=== PATIENT | male | born 1990 | race Caucasian/White ===

== ENCOUNTER → 2017-07-23 14:33 | Outpatient (CLI) | payer OTHER, SELFPAY ==
[2017-07-23 15:25] LABS: Amphetamine Urine VISTA NEGATIVE (<1000 ng/mL); Barbiturate Urine VISTA NEGATIVE (< 200 ng/mL); Benzodiazepine Urine VISTA NEGATIVE (< 200 ng/mL); Cocaine Urine VISTA NEGATIVE (< 300 ng/mL); Ecstacy Urine VISTA NEGATIVE (< 500 ng/mL); Methadone Urine VISTA NEGATIVE (< 300 ng/mL); PCP Urine VISTA NEGATIVE (< 25 ng/mL); THC Urine VISTA NEGATIVE (< 50 ng/mL); Vista UDS pH Range 5
== END ==
PROVIDERS: Visit Provider Anesthesiology Pain Medicine
DX: F11.20 Opioid dependence, uncomplicated (principal)
CPT/HCPCS: 80307

== ENCOUNTER → 2018-02-11 17:55 | Outpatient (CLI) | payer OTHER, SELFPAY | PROVIDERS: Visit Provider Anesthesiology Pain Medicine | DX: M54.2 Cervicalgia (principal); M79.603 Pain in arm, unspecified | CPT/HCPCS: 72040 ==

== ENCOUNTER → 2020-07-19 16:25 | Outpatient (CLI) | payer OTHER, SELFPAY ==
[2020-07-19 17:55] LABS: Amphetamine Urine VISTA NEGATIVE (<1000 ng/mL); Barbiturate Urine VISTA NEGATIVE (< 200 ng/mL); Benzodiazepine Urine VISTA NEGATIVE (< 200 ng/mL); Cocaine Urine VISTA NEGATIVE (< 300 ng/mL); Ecstacy Urine VISTA NEGATIVE (< 500 ng/mL); Methadone Urine VISTA NEGATIVE (< 300 ng/mL); PCP Urine VISTA NEGATIVE (< 25 ng/mL); THC Urine VISTA NEGATIVE (< 50 ng/mL); Vista UDS pH Range 5
== END ==
PROVIDERS: Referring Provider Anesthesiology Pain Medicine; Visit Provider Anesthesiology Pain Medicine
DX: F11.20 Opioid dependence, uncomplicated (principal)
CPT/HCPCS: 80307

== ENCOUNTER 2020-10-10 14:01 | Outpatient (RCR) | payer OTHER, SELFPAY ==
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
--- NOTE | 2020-10-15 16:02 | HP.OTFCE.D ---
FCE D/C Summary - Discharge [facility] was seen for a one time visit for an FCE on 10/10/20 and is discharged.
== END 2020-10-10 19:00 | disposition home or self-care (01) ==
LOC: OT 14:01
PROVIDERS: PCP Student in an Organized Health Care Education/Training Program; Referring Provider Anesthesiology Pain Medicine; Visit Provider Anesthesiology Pain Medicine
DX: M51.27 Other intervertebral disc displacement, lumbosacral region (principal); M51.26 Other intervertebral disc displacement, lumbar region; M51.36 Other intervertebral disc degeneration, lumbar region; M51.37 Other intervertebral disc degeneration, lumbosacral region; M54.17 Radiculopathy, lumbosacral region
CPT/HCPCS: 97750